=== PATIENT | female | born 1955 | race Caucasian/White ===

== ENCOUNTER 2016-11-05 16:17 | Emergency (ER) | payer OTHER, MEDICARE ==
[~2016-11-05] VITALS: Ht 154.9 cm; Wt 101.6 kg
--- NOTE | 2016-11-05 16:41 | ED MVC/FALL/TRAUMA COMPLAINT ---
History of Present Illness General Chief Complaint: Fall Stated Complaint: BIBA FOR FALL Source: patient Exam Limitations: no limitations Vital Signs & Intake/Output Vital Signs & Intake/Output Vital Signs Date Time Temp Pulse Resp B/P Pulse O2 O2 Flow FiO2 Ox Delivery Rate 11/05 1825 96.2 99 19 138/72 94 Room Air 11/05 1621 96.8 110 20 144/74 96 Room Air Allergies Coded Allergies: No Known Allergies (11/05/16) Reconcile Medications Oxycodone HCl/Acetaminophen (Percocet 5-325 MG Tablet) 5 MG-325 MG TABLET 1 TAB PO BID PRN PAIN DO NOT OPERATE MOTOR VEHICLES WITH THIS MEDICATION TAKE DIRECTED Triage Note: PT TO ROOM 12 BIBA FROM HOME S/P FALL THIS MORING FROM WHEELCHAIR, PT TRIED TO GET BACK IN CHAIR AND PULLED HER ABDOMINAL MUSCLES. PT C/O UPPER ABD PAIN 08/14. PT DENIES HEADSTRIKE, -BLOODTHINNERS. ALSO PT HAS CHRONIC WOUNDS TO BILAT LOWER EXTREMITIES, DRESSING NOTED BILATERALLY. PT DENIES CHEST PAIN,DENIES N/V/D,DENIES URINARY S/S. MALATHI HATCH AT BEDSIDE FOR PT EVAL. Triage Nurses Notes Reviewed? yes Onset: Gradual Duration: getting worse Timing: single episode today Severity: severe Severity Numbers: 7 Loss of Consciousness: no loss of consciousness HPI: Patient is a 61-year-old female who presents emergency room stating that she had a long-term stay at [facility] and the fall for concerns of sepsis and acute kidney injury which patient then went to short-term rehabilitation and was discharged on October 19 in which patient today was in her normal state of health and while seated position patient try to reach FOR AN object in which she subsequently slid to the ground. Patient states that she was unable to get up because of weakness and which she laid and sat there for approximately 6 hours. Patient eventually was able to call 911 on her cell phone which patient has been complaining due to position lying of epigastric and chest wall pain. Patient denies any shortness of breath denies any trauma during the actual sliding episode denies any head strike neck pain back pain extremity pain abdominal pain nausea vomiting or cough. Patient currently complains of localized chest wall and epigastric pain is made worse with palpation Patient is nonambulatory due to chronic lower extremity ulcers (HOLDEN SERVIN,ADAL) Past History Travel History Traveled to [place] past 21 day No Medical History Any Pertinent Medical History? see below for history Renal: nephrolithiasis Surgical History Surgical History: non-contributory Psychosocial History What is your primary language Citizen Of [place] Tobacco Use: Quit <30 days ago ETOH Use: occasional use Family History Hx Contributory? No (ADAL PRAJAPATI) Review of Systems Review of Systems Constitutional: Reports: no symptoms. Eyes: Reports: no symptoms. Ears, Nose, Throat, Mouth: Reports: no symptoms. Respiratory: Reports: no symptoms. Cardiovascular: Reports: no symptoms. Gastrointestinal/Abdominal: Reports: see HPI, abdominal pain. Genitourinary: Reports: no symptoms. Musculoskeletal: Reports: no symptoms. Skin: Reports: no symptoms. Neurological/Psychological: Reports: no symptoms. All Other Systems: Reviewed and Negative (ADAL PRAJAPATI) Physical Exam Physical Exam General Appearance: mild distress Comments: Well-developed well-nourished person in no acute distress HEENT: Normal EENT exam, extraocular motion intact, no nystagmus. Pupils equally round and reactive to light and accommodation. Nose is atraumatic. External auditory canal and Tympanic membranes clear. Pharynx normal. No swelling or edema. Neck: Supple, no lymphadenopathy, normal range of motion without pain or tenderness No central spinous tenderness Back: Nontender, no CVA tenderness. No central spinous tenderness Cardiovascular: Regular rate and rhythms no murmurs rubs or gallops, normal JVP Respiratory: Chest nontender. No respiratory distress.breath sounds clear to auscultation bilaterally Abdomen: Soft, mild epigastric point tenderness no rebound tenderness no peritoneal signs no right upper quadrant pain no right lower quadrant pain, nondistended, no appreciable organomegaly. Normal bowel sounds. No ascites Extremity: No edema, no calf tenderness to palpation, normal and equal pulses. Neuro: Alert oriented x3, motor sensory normal, Skin: No appreciable rash on exposed skin, skin is warm and dry. Psych: Mood and affect is normal, memory and judgment is normal. Core Measures ACS in differential dx? No Severe Sepsis Present: No Septic Shock Present: No (ADAL PRAJAPATI) Progress Differential Diagnosis: aoritic dissection, abd injury, C/T/L spine injury, ext injury, ICH, pelvis injury, pnemothorax, spinal cord injury Plan of Care: Orders Procedure Date/time Status Add-on Test (ER Only) 11/05 1836 Active LIPASE 11/05 1655 Complete AMYLASE 11/05 165 Complete COMPREHENSIVE METABOLIC PANEL 11/05 163 Complete CREATINE PHOSPHOKINASE 11/05 163 Complete CBC WITHOUT DIFFERENTIAL 11/05 163 Complete Laboratory Tests 11/05/16 1655: Anion Gap 11, Estimated GFR 42 L, BUN/Creatinine Ratio 17.7, Glucose 93, Calcium 8.9, Total Bilirubin 0.6, AST 30, ALT 37, Alkaline Phosphatase 117, Creatine Kinase 164 H, Total Protein 6.8, Albumin 3.3 L, Globulin 3.5, Albumin /Globulin Ratio 0.9 L, Amylase 78, Lipase 191, CBC w Diff MAN DIFF ORDERED, RBC 3.62 L, MCV 92.5, MCH 31.1 H, RDW 17.4 H, MPV 7.9, Gran % 92.2 H, Lymphocytes % 5.1 L, Monocytes % 2.2, Eosinophils % 0.4, Basophils % 0.1, Absolute Granulocytes 15.6 H, Segmented Neutrophils 86 H, Band Neutrophils 1, Absolute Lymphocytes 0.9 L, Lymphocytes 10 L, Monocytes 3, Absolute Monocytes 0.4, Absolute Eosinophils 0.1, Absolute Basophils 0, Platelet Estimate ADEQUATE, Hypochromic-Microcytic 1+, Poikilocytosis 1+, Anisocytosis 1+, PUBS MCHC 33.6 No concerns of rhabdomyolysis, patient has no central spinous tenderness on exam and patient has no concerns of back pain cervical pain or extremity pain however she does have concerns of epigastric pain and palpation patient does have epigastric point tenderness. CT scan was unremarkable Patient also had significant resolution of pain with morphine administered. Patient has follow-up with primary care doctor on Sunday. Upon discharge she looks well no apparent DISTRESS will comply with discharge instructions and had no questions (HOLDEN SERVIN,ADAL) Diagnostic Imaging: Viewed by Me: CT Scan. Radiology Impression: no acute abnormality, no fracture Comments: PATIENT: JOSE MANUEL PAVON PRESENT AGE: 61 PATIENT ACCOUNT NO: [id number] : 55 LOCATION: [facility] ORDERING PHYSICIAN: ADAL SERVIN SERVICE DATE: 11/05/16 EXAM TYPE: CAT - CT CHEST WO IV CONTRAST EXAMINATION: CT CHEST WITHOUT CONTRAST CLINICAL INFORMATION: Anterior chest pain following fall. COMPARISON: None. TECHNIQUE: Multidetector volumetric CT imaging of the chest was done. Axial MIP volume rendering provided. Sagittal and coronal reformatted images were obtained. DLP: 628 mGy-cm. FINDINGS: HOME DEMONSTRATOR: Licensing Officer view of the chest is unremarkable. LUNGS: Evaluation of the lung parenchyma demonstrates minimal dependent bibasilar atelectasis. No suspicious pulmonary nodules or masses are identified. The central airways are patent, without endobronchial obstructing lesions. MEDIASTINUM: No significant anterior mediastinal hematoma. Limited evaluation for acute thoracic aortic injury in the absence of intravenous contrast. Normal heart size, without significant pericardial effusion. Normal three-vessel branching of the aortic arch. Scattered atherosclerosis of the thoracic aorta. Scattered coronary artery calcifications. No significant mediastinal or hilar adenopathy. Incidental note is made of a small hiatal hernia. PLEURA: No pleural effusions, pneumothoraces or pleural-based soft tissue masses. AXILLA: No lymphadenopathy. UPPER ABDOMEN: No acute findings within the upper abdomen. There are several tiny gallstones layering dependently within the gallbladder lumen. There is a partially visualized catheter within the left urinary collecting system, with an 8 mm stone identified within the proximal left ureter. There are several additional nonobstructing stones within the lower pole of the left kidney. There is no appreciable hydronephrosis of the left kidney. OSSEOUS STRUCTURES: Age-indeterminate compression deformity involving the T10 vertebral body, with approximately 25% disc height loss centrally. Thoracic spine alignment appears grossly maintained. No displaced sternal fractures are identified. There are no acute bilateral rib fractures. IMPRESSION: 1. No findings suggestive of pulmonary contusion or laceration in the setting of trauma. 2. No anterior mediastinal hematoma. Imaged evaluation for acute thoracic aortic injury given lack of intravenous contrast. 3. Age-indeterminate compression deformity involving the T10 vertebral body, with approximately 25% disc height loss centrally. Correlate with physical exam and point tenderness within this region. No sternal fractures. No bilateral rib fractures. No subcutaneous hematomas. (ADAL PRAJAPATI) Departure Departure Disposition: HOME OR SELF CARE Condition: Stable Clinical Impression Primary Impression: Epigastric pain Referrals: UNKNOWN (PCP/Family) Referred to [facility] as new patient No Additional Instructions: As discussed begin the prescription of Percocet as directed for breakthrough pain. Continue with home medications. Follow-up with your primary care doctor as yet appointment on Sunday. If symptoms worsen return to emergency room Departure Forms: Customer Survey General Discharge Information Prescriptions: Current Visit Scripts Oxycodone HCl/Acetaminophen (Percocet 5-325 MG Tablet) 1 TAB PO BID PRN PAIN #10 TAB DO NOT OPERATE MOTOR VEHICLES WITH THIS MEDICATION TAKE DIRECTED (HOLDEN SERVIN,ADAL) PA/SUNGLASS CLIP ATTACHER Co-Sign Statement Statement: ED Attending supervision documentation- [] I saw and evaluated the patient. I have also reviewed all the pertinent lab results and diagnostic results. I agree with the findings and the plan of care as documented in the PA's/SUNGLASS CLIP ATTACHER's documentation. [X] I have reviewed the ED Record and agree with the PA's/SUNGLASS CLIP ATTACHER's documentation. [] Additions or exceptions (if any) to the PAs/SUNGLASS CLIP ATTACHER's note and plan are summarized below: [] (USAMA CONROY,NAMITA)
[2016-11-05 17:14] LABS: ABSOLUTE BASOPHIL COUNT 0 /CUMM (0.0-0.2); ABSOLUTE EOSINOPHIL COUNT 0.1 /CUMM (0.0-0.7); ABSOLUTE GRANULOCYTE CT 15.6 /CUMM (1.4-6.5); ABSOLUTE LYMPH COUNT 0.9 /CUMM (1.2-3.4); ABSOLUTE MONOCYTE COUNT 0.4 /CUMM (0.10-0.60); BASOPHIL % 0.1 % (0.0-2.0); EOSINOPHIL % 0.4 % (0-5); GRANULOCYTE % 92.2 % (42.2-75.2); HEMATOCRIT 33.5 % (37-47); MEAN CORPUSCULAR HGB 31.1 PG (27.0-31.0); MEAN CORPUSCULAR HGB CONC 33.6 G/DL (33.0-37.0); MEAN CORPUSCULAR VOLUME 92.5 FL (81.0-99.0); MEAN PLATELET VOLUME 7.9 FL (7.4-10.4); PLATELET COUNT 397 /CUMM (130-400); RBC DISTRIBUTION WIDTH 17.4 % (11.5-14.5); RED BLOOD CELL CT 3.62 /CUMM (4.20-5.40); WHITE BLOOD CELL COUNT 16.9 /CUMM (4.8-10.8)
[2016-11-05 18:25] VITALS: BP 138/72
--- NOTE | 2016-11-05 19:17 | CT SCAN REPORT ---
EXAMINATION: CT CHEST WITHOUT CONTRAST CLINICAL INFORMATION: Anterior chest pain following fall. COMPARISON: None. TECHNIQUE: Multidetector volumetric CT imaging of the chest was done. Axial MIP volume rendering provided. Sagittal and coronal reformatted images were obtained. DLP: 628 mGy-cm. FINDINGS: MAPLE SUGAR MAKER: Computer Education Teacher view of the chest is unremarkable. LUNGS: Evaluation of the lung parenchyma demonstrates minimal dependent bibasilar atelectasis. No suspicious pulmonary nodules or masses are identified. The central airways are patent, without endobronchial obstructing lesions. MEDIASTINUM: No significant anterior mediastinal hematoma. Limited evaluation for acute thoracic aortic injury in the absence of intravenous contrast. Normal heart size, without significant pericardial effusion. Normal three-vessel branching of the aortic arch. Scattered atherosclerosis of the thoracic aorta. Scattered coronary artery calcifications. No significant mediastinal or hilar adenopathy. Incidental note is made of a small hiatal hernia. PLEURA: No pleural effusions, pneumothoraces or pleural-based soft tissue masses. AXILLA: No lymphadenopathy. UPPER ABDOMEN: No acute findings within the upper abdomen. There are several tiny gallstones layering dependently within the gallbladder lumen. There is a partially visualized catheter within the left urinary collecting system, with an 8 mm stone identified within the proximal left ureter. There are several additional nonobstructing stones within the lower pole of the left kidney. There is no appreciable hydronephrosis of the left kidney. OSSEOUS STRUCTURES: Age-indeterminate compression deformity involving the T10 vertebral body, with approximately 25% disc height loss centrally. Thoracic spine alignment appears grossly maintained. No displaced sternal fractures are identified. There are no acute bilateral rib fractures. IMPRESSION: 1. No findings suggestive of pulmonary contusion or laceration in the setting of trauma. 2. No anterior mediastinal hematoma. Imaged evaluation for acute thoracic aortic injury given lack of intravenous contrast. 3. Age-indeterminate compression deformity involving the T10 vertebral body, with approximately 25% disc height loss centrally. Correlate with physical exam and point tenderness within this region. No sternal fractures. No bilateral rib fractures. No subcutaneous hematomas.
[2016-11-05] MEDS ORDERED: PERCOCET 5-3251 EACH PO (19:29)
== END 2016-11-05 19:47 ==
LOC: ERH 16:17
PROVIDERS: Physician Assistant
DX: R10.13 Epigastric pain (principal); R07.89 Other chest pain
CPT/HCPCS: 96372